=== PATIENT | male | born 1980 | race American Indian/Alaskan Native ===

== ENCOUNTER 2017-12-26 21:25 | Emergency (ER) | payer BC ==
[2017-12-26 21:40] VITALS: BP 146/88
[2017-12-26] MEDS ORDERED: PEPCID PO ONE (21:41)
[2017-12-26] MEDS ORDERED: BENADRYL PO ONE (21:41)
== END 2017-12-27 04:20 | disposition left against medical advice (07) ==
LOC: ED 21:25
DX: B86 Scabies (principal); F17.200 Nicotine dependence, unspecified, uncomplicated; Z53.21 Procedure and treatment not carried out due to patient leaving prior to being seen by health care provider
CPT/HCPCS: J2930